=== PATIENT | female | born 1940 | race Caucasian/White ===

== ENCOUNTER 2025-01-23 13:13 | Outpatient (AMB) | payer MEDICARE, SELFPAY ==
--- NOTE | 2025-01-23 13:24 | MHC.PC.OV ---
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 Automatic Required: No Accompanied by: Self / Same As Patient Allergies No Known Allergies Allergy (Verified 01/23/25 13:43) Medication List - Last Reconciled 01/23/25 by Bonnie Calle PA-C amlodipine 5 mg PO DAILY latanoprost 0.005% 1 drp ophthalmic (eye) BEDTIME Tobacco use date assessed: 01/23/25 Fall risk assessment: No Falls in past year Last assessed Fall Risk: 01/23/25 Dental Screening Dental Screen Date: 01/23/25 Did you have a dental visit in the last 12 months?: No Did you have a dental problem in the last 6 months where you did not have access to dental care?: No HPI establish care HPI Details The patient is an 84-year-old female presenting with a new patient appointment to establish primary care and manage her existing health conditions. The patient has a history of cataracts, which have been affecting her vision. She has not scheduled surgery yet but plans to do so after completing her blood work and preoperative evaluation. The patient also has a history of hypertension, for which she was prescribed amlodipine by urgent care. She reports that her blood pressure readings at home have been satisfactory, with occasional low readings that concern her. Her blood pressure during the visit was recorded at 138/70 mmHg. The patient is very active, engaging in various activities to maintain her health. She lives alone and does not drive frequently. She has a supportive social network, including a sister and a girlfriend who assists her with healthcare decisions. Social History - Housing: Lives alone - Activity Level: Very active, engages in various activities - Social Support: Has a sister and a girlfriend who assist with healthcare decisions [facility] Medical History Cataracts, bilateral Hypertension Encounter for brief counseling about health care proxy document (~01/23/25) Full code status (~01/23/25) Establishing care with new doctor, encounter for Family History Father No problems noted. Mother No problems noted. Sister MS (multiple sclerosis) Diabetes Social History Housing: House Alcohol intake: current Alcohol intake frequency: holidays/special occasions only Alcohol type: wine Patient Tobacco Use Status: Never used Tobacco service: No Current occupational status: retired Cognitive needs: No Hearing needs: No Vision needs: Yes (rx glasses) Questionnaire PHQ-9 Over the last 2 weeks, how often have you been bothered by any of the following problems? 1. Little interest or pleasure in doing things: not at all 2. Feeling down, depressed, or hopeless: not at all 3. Trouble falling or staying asleep, or sleeping too much: not at all 4. Feeling tired or having little energy: not at all 5. Poor appetite or overeating: not at all 6. Feeling bad about yourself - or that you are a failure or have let yourself or your family down: not at all 7. Trouble concentrating on things, such as reading the newspaper or watching television: not at all 8. Moving or speaking so slowly that other people could have noticed. Or the opposite - being so fidgety or restless that you have been moving around a lot more than usual: not at all 9. Thoughts that you would be better off or of hurting yourself in some way: not at all Total score: 0 Depression Screening Interpretation: Negative Depression Screening Done: Yes 88574 - PHQ-9 Billing: Yes Source: Developed by Drs. Omar Zimmerman, Kellee Munoz, Meño Aviles and colleagues, with an educational jaison from [employer]. Thrive Questionnaire Date Thrive assessed: 01/23/25 I am a: Patient What is your living situation today?: I have a steady place to live Within the past 12 months, did the food you bought not last and you didn't have the money to get more?: Never true Within the past 12 months, did you worry whether your food would run out before you got money to buy more?: Never true Do you have trouble paying for medicines?: No Do you have trouble getting transportation to medical appointments?: No Do you have trouble paying your heating and electricity bill?: No Do you have trouble taking care of your child, family member or friend?: No Do you have trouble with day-to-day activities such as bathing, preparing meals, shopping, managing finances, etc.?: No Are you currently unemployed and looking for a job?: No Are you interested in more education?: No Please select the resources that you would like help with: None THRIVE Score: 0 AUDIT C Alcohol Use Questionnaire (AUDIT-C) 1. How often do you have a drink containing alcohol?: Monthly or less 2. How many drinks containing alcohol do you have on a typical day when you are drinking?: 1 or 2 3. How often do you have six or more drinks on one occasion?: Never Total Score: 1 Score Reviewed/Action Taken: No RAMY-7 AMB Questionnaire RAMY-7 Date RAMY - 7 assessed: 01/23/25 Feeling nervous, anxious, or on edge: 0 = Not at all Not being able to stop or control worryin = Not at all Worrying too much about different things: 0 = Not at all Trouble relaxin = Not at all Being so restless that it is hard to sit still: 0 = Not at all Becoming easily annoyed or irritable: 0 = Not at all Feeling afraid as if something awful might happen: 0 = Not at all Total RAMY-7 score (0-4 normal; 5-9 mild; 10-14 moderate; 15-21 severe): 0 Source: Developed by Drs. Omar Zimmerman, Kellee Munoz, Meño Aviles and colleagues, with an educational jaison from [employer]. RAMY-7 Assessment Billing RAMY-7 Assessment Tool: RAMY-7 Assessment 58887 Review of Systems Const Details: - Cardiovascular: Denies chest pain, dyspnea, dizziness, or syncope - Gastrointestinal: Denies black or bloody stools - General: Denies unintentional weight loss or gain Physical exam (Primary Care) Vital Signs: Last Vital Signs Temp 97.8 F 01/23/25 13:30 Pulse 98 01/23/25 13:30 Resp 14 01/23/25 13:30 BP 148/82 H 01/23/25 13:30 Pulse Ox 98 01/23/25 13:30 Oxygen Delivery Method Room Air 01/23/25 13:30 Care Plan Goal for BP management: <140/90 at Goal although patient having swelling to lower extremities from the amlodipine 5 mg therefore will put her on lisinopril 10 mg and have patient come back in 1 month for blood pressure check BMI result Body Mass Index 22.1 Normal BMI Tobacco/Smoking Status: Tobacco use Status Tobacco use date assessed 01/23/25 01/23/25 13:29 Patient Tobacco Use Status Never used Tobacco 01/23/25 13:39 PHQ-9: PHQ-9 Score PHQ-9: Total score 0 01/23/25 13:29 Depression Screening Interpretation: Negative Thrive Assessment: Date of Thrive Assessment Date Thrive assessed 01/23/25 01/23/25 13:29 Advance Care Planning discussion: Completed/Scanned Date of discussion: 01/23/25 Forms completed: Health Care Proxy and MOLST Time spent: 16-45 minutes Actual minutes spent: 25 Did not discuss due to Cultural/Spiritual beliefs: No Const Other: Appearance: Alert. Oriented X3. No acute distress. Head: Normal external exam. Normocephalic. Atraumatic. Eyes: Pupils are equal, round, and reactive to light. Extraocular movements intact. Conjunctiva and sclera normal. Eyelids normal. Presence of cataracts noted. Ears: External auditory canal normal. Tympanic membranes normal. Throat: Pharynx normal. Uvula midline. Moist mucous membranes. Neck: Normal inspection. Neck supple. Full range of motion. No adenopathy. Thyroid Normal. No meningeal signs. No neck mass noted. Cardiovascular: Normal heart rate and rhythm. Heart sound normal. No murmurs noted. Pulses normal throughout. Blood pressure recorded at 138/70. Respiratory: No respiratory distress. Painless inspiration. Breath sounds normal. No wheezes/rales/rhonchi noted. Chest nontender. No accessory muscle usage noted or decreased air movement noted. Abdomen: Soft and nontender. Bowel sounds normal in all 4 quadrants. No distention noted. No organomegaly noted. No visible injury noted. Back: No costovertebral angle tenderness. Full range of motion noted. Skin: Skin warm and dry. Normal skin color. Normal skin turgor. No rashes/lesions/lacerations noted. Extremities: No lower extremity edema. Extremities exhibit normal range of motion. Extremities nontender. Neuro: Oriented X 3. No motor deficit. No sensory deficit. Reflexes normal. Coding Level of Care Code New Pt Level 4 (04835) Complex EM visit Add On G2211 Diagnoses Establishing care with new doctor, encounter for Z76.89 Full code status Z78.9 Encounter for brief counseling about health care proxy document Z71.89 Hypertension I10 Cataracts, bilateral H26.9 Additional Codes PHQ-9 - 90963 - PHQ-9 Billing: Yes ([id number]) RAMY-7 Assessment Billing - RAMY-7 Assessment Tool: RAMY-7 Assessment 39449 ([id number]) Vital Signs *Quality* - Advance Care Planning discussion: Completed/Scanned ([id number]) Vital Signs *Quality* - Time spent: 16-45 minutes ([id number]) Time Spent (min) 40 Assessment & Plan Assessment & Plan (1) Establishing care with new doctor, encounter for: Code(s): Z76.89 - Persons encountering health services in other specified circumstances Category: Medical (2) Full code status: Onset Date: ~01/23/25 Code(s): Z78.9 - Other specified health status Category: Medical Plan: Patient filled out healthcare proxy form and MOLST form for advanced care planning today. Patient is a full code. (3) Encounter for brief counseling about health care proxy document: Onset Date: ~01/23/25 Comment: Sofia Krishna Code(s): Z71.89 - Other specified counseling Category: Medical Plan: Patient filled out healthcare proxy form and MOLST form for advanced care planning today. Patient is a full code. (4) Hypertension: Code(s): I10 - Essential (primary) hypertension Category: Medical Plan: The patient is currently on amlodipine for hypertension, with satisfactory home blood pressure readings. A switch to lisinopril was discussed due to potential side effects of amlodipine, such as leg swelling. The patient was advised to monitor for any side effects, such as cough or angioedema, and to report them immediately. (5) Cataracts, bilateral: Code(s): H26.9 - Unspecified cataract Category: Medical Plan: The patient has cataracts affecting her vision and plans to schedule surgery after completing blood work and preoperative evaluation. Plan Plan Patient was informed and verbally consented to the use of an ambient scribe for clinic note documentation during this visit. 1. Cataracts The patient has cataracts affecting her vision and plans to schedule surgery after completing blood work and preoperative evaluation. 2. Essential Hypertension The patient is currently on amlodipine for hypertension, with satisfactory home blood pressure readings. A switch to lisinopril was discussed due to potential side effects of amlodipine, such as leg swelling. The patient was advised to monitor for any side effects, such as cough or angioedema, and to report them immediately. During the visit, we discussed the patient's cataracts and the plan to schedule surgery after completing necessary blood work and preoperative evaluation. We also reviewed her hypertension management, including the potential switch from amlodipine to lisinopril due to side effects. The patient was informed about the side effects of lisinopril, such as cough and angioedema, and instructed to report any adverse reactions. Orders: Orders Hemoglobin A1c Today Z00.00 - Encounter for general adult medical examination without abnormal findings Comprehensive [place]. Panel Fast Today Z00.00 - Encounter for general adult medical examination without abnormal findings Lipid Panel Today Z00.00 - Encounter for general adult medical examination without abnormal findings Vitamin B12 and Folate Today Z00.00 - Encounter for general adult medical examination without abnormal findings Vitamin D 25-OH Total Today Z00.00 - Encounter for general adult medical examination without abnormal findings TSH reflex Free T4 Today Z00.00 - Encounter for general adult medical examination without abnormal findings C Reactive Protein Today Z00.00 - Encounter for general adult medical examination without abnormal findings Complete Blood Count Auto Diff Today Z00.00 - Encounter for general adult medical examination without abnormal findings Liver Panel Today Z00.00 - Encounter for general adult medical examination without abnormal findings Magnesium Today Z00.00 - Encounter for general adult medical examination without abnormal findings Medications: New lisinopril 10 mg PO DAILY 30 tabs 0RF Patient Instructions: - Schedule blood work and preoperative evaluation for cataract surgery. - Monitor blood pressure at home and report any significant changes. - Be aware of potential side effects of lisinopril, such as cough or swelling, and report them immediately.
[2025-01-23 13:30] VITALS: BP 138/72; PULSE 98; RESP 14; TEMP 36.6; O2SAT 98; BMI 22.1
== END 2025-01-23 14:08 | disposition home or self-care (01) ==
LOC: HO.HMCSH 13:13
PROVIDERS: PCP Internal Medicine; Visit Provider Physician Assistant Medical
DX: Z76.89 Persons encountering health services in other specified circumstances (principal); Z78.9 Other specified health status; Z71.89 Other specified counseling; I10 Essential (primary) hypertension; H26.9 Unspecified cataract; Z00.00 Encounter for general adult medical examination without abnormal findings

== ENCOUNTER → 2025-01-23 13:13 | Outpatient (BNVA) | payer MEDICARE, SELFPAY | PROVIDERS: PCP Internal Medicine; Visit Provider Physician Assistant Medical | DX: Z76.89 Persons encountering health services in other specified circumstances (principal); Z78.9 Other specified health status; Z71.89 Other specified counseling; I10 Essential (primary) hypertension; H26.9 Unspecified cataract | CPT/HCPCS: 96127; 99202; 99497 ==

== ENCOUNTER 2025-02-01 08:58 | Outpatient (REF) | payer MEDICARE, SELFPAY ==
[2025-02-01 10:22] LABS: MANUAL DIFF FLAG NO
[2025-02-01 10:45] LABS: Hematocrit 35.5 % (37.0-47.0); Hemoglobin 12.0 g/dl (12.0-16.0); Imm Gran Abs Auto 0.01 X10*3/uL (0.00-0.03); Imm Gran Pct Auto 0.3 % (0.0-0.4); Lymphocytes Absolute Auto 0.9 X10*3/uL (1.2-4.9); Mean Corpuscular HGB Conc 33.8 g/dl (31.0-35.0); Mean Corpuscular Hemoglobin 29.7 pg (27.0-33.0); Mean Corpuscular Volume 87.9 fL (80.0-98.0); NRBC Abs Auto 0.000 X10*3/uL (0.0-0.012); NRBC Pct Auto 0.0 /100WBC (0.0-0.2); Platelet Count 157 X10*3/uL (160-400); Red Blood Count 4.04 X10*6/uL (4.20-5.50); White Blood Count 3.4 X10*3/uL (4.8-10.8)
[2025-02-01 10:53] LABS: Hemoglobin A1C 109.7401 umol/L; Total Hemoglobin (HGBA1C) 3239.4056 umol/L
[2025-02-01 11:09] LABS: Alanine Aminotransferase 21 U/L (0-31); Albumin Level 4.3 g/dL (3.5-5.0); Alkaline Phosphatase 73 U/L (39-117); Anion Gap 13 (12-20); Aspartate Amino Transferase 28 U/L (5-31); Blood Urea Nitrogen 18 mg/dL (9-16); Calcium 9.9 mg/dL (8.4-10.2); Carbon Dioxide 27 mmol/L (22-29); Chloride 107 mmol/L (96-108); Cholesterol 225 mg/dL (<200); Estimated Glomerular Filt Rate > 60; HDL Cholesterol 67 mg/dL (>40); Magnesium 2.1 mg/dL (1.6-2.6); Potassium 4.9 mmol/L (3.3-5.1); Sodium 142 mmol/L (135-145); Total Protein 7.1 g/dL (6.5-8.0); Triglycerides 56 mg/dL (<150)
[2025-02-01 11:51] LABS: Folate 14.1 ng/mL (> or = 4.0); Vitamin B12 270 pg/mL (200-900)
== END 2025-02-01 08:59 | disposition home or self-care (01) ==
LOC: HO.HMGCLDS 08:58
PROVIDERS: PCP Physician Assistant Medical; Visit Provider Physician Assistant Medical
DX: Z00.00 Encounter for general adult medical examination without abnormal findings (principal); Z13.1 Encounter for screening for diabetes mellitus
CPT/HCPCS: 36415; 80053; 80061; 80076; 82248; 82306; 82607; 82746; 83036; 83735; 84443; 85025; 86140

== ENCOUNTER 2025-02-06 10:53 | Outpatient (AMB) | payer MEDICARE, SELFPAY ==
[2025-02-06 10:54] VITALS: BP 126/64; PULSE 85; RESP 16; TEMP 37; O2SAT 98; BMI 22.0
--- NOTE | 2025-02-06 10:54 | A.OFFPC_ITS ---
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 Required: No Accompanied by: Self / Same As Patient Allergies No Known Allergies Allergy (Verified 02/06/25 11:26) Medication List - Last Reconciled 02/06/25 by Bonnie Calle PA-C amlodipine 5 mg PO DAILY latanoprost 0.005% 1 drp ophthalmic (eye) BEDTIME Tobacco use date assessed: 01/23/25 Fall risk assessment: No Falls in past year Last assessed Fall Risk: 01/23/25 Dental Screening Dental Screen Date: 01/23/25 Did you have a dental visit in the last 12 months?: No Did you have a dental problem in the last 6 months where you did not have access to dental care?: No Was dental information given to patient?: Patient has dentist HPI 2 week follow up HPI Details The patient is an 84-year-old female presenting with a follow-up for hypertension management. She has been taking amlodipine 5 mg for hypertension after discontinuing lisinopril due to concerns about side effects, specifically leg swelling. The patient reports feeling well on amlodipine, with no current side effects, and her blood pressure was normal during the visit. The patient also has a history of hyperlipidemia, with recent lab results showing a total cholesterol level of 225 mg/dL and LDL cholesterol of 145 mg/dL. She acknowledges not adhering to a healthy diet, consuming foods like tuna fish, which may contribute to her elevated cholesterol levels. The patient is not currently on medication for hyperlipidemia and prefers lifestyle modifications. Recent blood work indicated leukopenia with a white blood cell count of 3.4 thousand and thrombocytopenia with a low platelet count. The patient is otherwise asymptomatic and reports feeling strong. There is no history of diabetes, with a recent glucose test showing a level of 5.3, indicating no risk for diabetes. Social History - Housing: Lives in a house built by her father and brother, taking care of cats left by her niece. - Family Status: Recently experienced th e loss of a niece to pancreatic cancer and a nephew to suicide. 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 - Nutritional Intake: Consumes a diet in cluding tuna fish, acknowledges not eating healthily. [facility] Medical History (Updated 02/06/25 @ 14:48 by Bonnie Calle PA-C) Thrombocytopenia Leukopenia Hyperlipidemia Cataracts, bilateral Hypertension Encounter for brief counseling about health care proxy document (~01/23/25) Full code status (~01/23/25) Establishing care with new doctor, encounter for Family History Father No problems noted. Mother No problems noted. Sister MS (multiple sclerosis) Diabetes Social History Housing: House Alcohol intake: current Alcohol intake frequency: holidays/special occasions only Alcohol type: wine Patient Tobacco Use Status: Never used Tobacco service: No Current occupational status: retired Cognitive needs: No Hearing needs: No Vision needs: Yes (rx glasses) Questionnaire PHQ-9 Over the last 2 weeks, how often have you been bothered by any of the following problems? 1. Little interest or pleasure in doing things: not at all 2. Feeling down, depressed, or hopeless: not at all 3. Trouble falling or staying asleep, or sleeping too much: not at all 4. Feeling tired or having little energy: not at all 5. Poor appetite or overeating: not at all 6. Feeling bad about yourself - or that you are a failure or have let yourself or your family down: not at all 7. Trouble concentrating on things, such as reading the newspaper or watching television: not at all 8. Moving or speaking so slowly that other people could have noticed. Or the opposite - being so fidgety or restless that you have been moving around a lot more than usual: not at all 9. Thoughts that you would be better off or of hurting yourself in some way: not at all Total score: 0 Depression Screening Interpretation: Negative Depression Screening Done: Yes 90651 - PHQ-9 Billing: Yes Source: Developed by Drs. Omar Zimmerman, Kellee Munoz, Meño Aviles and colleagues, with an educational jaison from [employer]. Thrive Questionnaire Date Thrive assessed: 01/23/25 I am a: Patient What is your living situation today?: I have a steady place to live Within the past 12 months, did the food you bought not last and you didn't have the money to get more?: Never true Within the past 12 months, did you worry whether your food would run out before you got money to buy more?: Never true Do you have trouble paying for medicines?: No Do you have trouble getting transportation to medical appointments?: No Do you have trouble paying your heating and electricity bill?: No Do you have trouble taking care of your child, family member or friend?: No Do you have trouble with day-to-day activities such as bathing, preparing meals, shopping, managing finances, etc.?: No Are you currently unemployed and looking for a job?: No Are you interested in more education?: No Please select the resources that you would like help with: None THRIVE Score: 0 AUDIT C Alcohol Use Questionnaire (AUDIT-C) 1. How often do you have a drink containing alcohol?: Monthly or less 2. How many drinks containing alcohol do you have on a typical day when you are drinking?: 1 or 2 3. How often do you have six or more drinks on one occasion?: Never Total Score: 1 Score Reviewed/Action Taken: No RAMY-7 AMB Questionnaire RAMY-7 Date RAMY - 7 assessed: 01/23/25 Feeling nervous, anxious, or on edge: 0 = Not at all Not being able to stop or control worryin = Not at all Worrying too much about different things: 0 = Not at all Trouble relaxin = Not at all Being so restless that it is hard to sit still: 0 = Not at all Becoming easily annoyed or irritable: 0 = Not at all Feeling afraid as if something awful might happen: 0 = Not at all Total RAMY-7 score (0-4 normal; 5-9 mild; 10-14 moderate; 15-21 severe): 0 Source: Developed by Drs. Omar Zimmerman, Kellee Munoz, Meño Aviles and colleagues, with an educational jaison from [employer]. RAMY-7 Assessment Billing RAMY-7 Assessment Tool: RAMY-7 Assessment 99029 Review of Systems Const Details: - Cardiovascular: Reports normal blood pressure at the time of visit. Denies chest pain or palpitations. - Hematologic: Reports feeling strong despite low white blood cell and platelet counts. - Endocrine: Denies symptoms of diabetes, with normal glucose levels reported. Physical exam (Primary Care) Vital Signs: Last Vital Signs Temp 98.6 F 02/06/25 10:54 Pulse 85 02/06/25 10:54 Resp 16 02/06/25 10:54 BP 126/64 02/06/25 10:54 Pulse Ox 98 02/06/25 10:54 Oxygen Delivery Method Room Air 02/06/25 10:54 Care Plan Goal for BP management: <140/90 at Goal BMI result Body Mass Index 22.0 Tobacco/Smoking Status: Tobacco use Status Tobacco use date assessed 01/23/25 02/06/25 11:00 Patient Tobacco Use Status Never used Tobacco 02/06/25 11:00 PHQ-9: PHQ-9 Score PHQ-9: Total score 0 02/06/25 11:28 Depression Screening Interpretation: Negative Thrive Assessment: Date of Thrive Assessment Date Thrive assessed 01/23/25 02/06/25 11:00 Const Other: Appearance: Alert. Oriented X3. No acute distress. Head: Normal external exam. Normocephalic. Atraumatic. Eyes: Pupils are equal, round, and reactive to light. Extraocular movements intact. Conjunctiva and sclera normal. Eyelids normal. Throat: Pharynx normal. Uvula midline. Moist mucous membranes. Neck: Normal inspection. Neck supple. Full range of motion. Cardiovascular: Normal heart rate and rhythm. Respiratory: No respiratory distress. Painless inspiration. Back: Full range of motion noted. Skin: Skin warm and dry. Normal skin color. Normal skin turgor. No rashes/le sions/lacerations noted. Extremities: No lower extremity edema. Extremities exhibit normal range of motion. Neuro: Oriented X 3. No motor deficit. No sensory deficit. Reflexes normal. Results Reviewed Results Reviewed: - Labs: White blood cell count 3.4 thousand, platelet count low, total cholesterol 225 mg/dL, LDL cholesterol 145 mg/dL, glucose 5.3, triglycerides 56 mg/dL. Coding Level of Care Code Est Pt Level 4 (86585) Complex EM visit Add On G2211 Diagnoses Hypertension I10 Hyperlipidemia E78.5 Leukopenia D72.819 Thrombocytopenia D69.6 Additional Codes RAMY-7 Assessment Billing - RAMY-7 Assessment Tool: RAMY-7 Assessment 63694 ([id number]) PHQ-9 - 96606 - PHQ-9 Billing: Yes ([id number]) Assessment & Plan Assessment & Plan (1) Hypertension: Code(s): I10 - Essential (primary) hypertension Category: Medical Plan: The patient is currently managing hypertension with amlodipine 5 mg, having discontinued lisinopril due to side effects. Blood pressure was normal during the visit, and the patient reports no adverse effects from the current medication. A follow-up appointment is scheduled in three months to monitor blood pressure and medication efficacy. (2) Hyperlipidemia: Code(s): E78.5 - Hyperlipidemia, unspecified Category: Medical Plan: The patient has elevated cholesterol levels, with a total cholesterol of 225 mg/dL and LDL of 145 mg/dL. She prefers lifestyle modifications over medication and will receive dietary guidance to help manage cholesterol levels. A pamphlet with natural options for cholesterol management will be provided. (3) Leukopenia: Code(s): D72.819 - Decreased white blood cell count, unspecified Category: Medical Plan: The patient has a low white blood cell count of 3.4 thousand, which may be chronic. She is asymptomatic and reports feeling strong, with no immediate concerns raised during the visit. The condition will be re-evaluated in six months to monitor any changes. (4) Thrombocytopenia: Code(s): D69.6 - Thrombocytopenia, unspecified Category: Medical Plan: The patient has a low platelet count, but is otherwise asymptomatic and reports feeling strong. The condition will be monitored, with a follow-up planned in six months to assess any changes. Plan Plan Patient was informed and verbally consented to the use of an ambient scribe for clinic note documentation during this visit. 1. Hypertension The patient is currently managing hypertension with amlodipine 5 mg, having discontinued lisinopril due to side effects. Blood pressure was normal during the visit, and the patient reports no adverse effects from the current medication. A follow-up appointment is scheduled in three months to monitor blo od pressure and medication efficacy. 2. Hyperlipidemia The patient has elevated cholesterol levels, with a total cholesterol of 225 mg/dL and LDL of 145 mg/dL. She prefers lifestyle modifications over medication and will receive dietary guidance to help manage cholesterol levels. A pamphlet with natural options for cholesterol management will be provided. 3. Leukopenia The patient has a low white blood cell count of 3.4 thousand, which may be chronic. She is asymptomatic and reports feeling strong, with no immediate concerns raised during the visit. The condition will be re-evaluated in six months to monitor any changes. 4. Thrombocytopenia The patient has a low platelet count, but is otherwise asymptomatic and reports feeling strong. The condition will be monitored, with a follow-up planned in six months to assess any changes. During the visit, we discussed the management of hypertension with amlodipine, noting the patient's positive response and normal blood pressure readings. We also reviewed her cholesterol levels and the preference for lifestyle modifications over medication, providing dietary guidance and a pamphlet with natural options. The low white blood cell and platelet counts were addressed, with reassurance provided regarding the lack of symptoms and a plan to re- evaluate in six months. Medications: Discontinued lisinopril Discontinued Reason: Doctor's Order 10 mg PO DAILY 30 tabs 0RF Patient Instructions: - Continue taking amlodipine 5 mg daily for hypertension management. - Follow dietary guidance to manage cholesterol levels and review the provided pamphlet for natural options. - Schedule a follow-up appointment in three months to monitor blood pressure and medication efficacy. - Plan for a re-evaluation of blood counts in six months.
== END 2025-02-06 11:27 | disposition home or self-care (01) ==
LOC: HO.HMCSH 10:53
PROVIDERS: PCP Physician Assistant Medical; Visit Provider Physician Assistant Medical
DX: I10 Essential (primary) hypertension (principal); E78.5 Hyperlipidemia, unspecified; D72.819 Decreased white blood cell count, unspecified; D69.6 Thrombocytopenia, unspecified

== ENCOUNTER → 2025-02-06 10:53 | Outpatient (BNVA) | payer MEDICARE, SELFPAY | PROVIDERS: PCP Physician Assistant Medical; Visit Provider Physician Assistant Medical | DX: I10 Essential (primary) hypertension (principal); E78.5 Hyperlipidemia, unspecified; D72.819 Decreased white blood cell count, unspecified; D69.6 Thrombocytopenia, unspecified | CPT/HCPCS: 96127; 99212 ==

== ENCOUNTER 2025-05-09 13:00 | Outpatient (AMB) | payer MEDICARE, SELFPAY ==
[2025-05-09 13:02] VITALS: BP 147/74; PULSE 71; TEMP 36.4; O2SAT 98; BMI 22.3
--- NOTE | 2025-05-09 13:02 | A.OFFPC_ITS ---
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 Accompanied by: Self / Same As Patient Allergies No Known Allergies Allergy (Verified 05/09/25 13:22) Medication List - Last Reconciled 05/09/25 by Bonnie Calle PA-C amlodipine 5 mg PO DAILY latanoprost 0.005% 1 drp ophthalmic (eye) BEDTIME Tobacco use date assessed: 05/09/25 Fall risk assessment: No Falls in past year Last assessed Fall Risk: 05/09/25 Dental Screening Dental Screen Date: 05/09/25 Did you have a dental visit in the last 12 months?: No Did you have a dental problem in the last 6 months where you did not have access to dental care?: No Was dental information given to patient?: Patient has dentist HPI 4 month f/u HPI Details The patient is an 85-year-old female presenting with swelling in her feet and hypertension management. The patient reports swelling in her feet, with the right foot appearing more swollen than the left. She denies any recent falls or injuries that could have contributed to the swelling. The patient is currently taking amlodipine, which may be contributing to the swelling as a side effect. The patient has a history of hypertension, with recent blood pressure readings at home typically around 120/70 mmHg. During the visit, her blood pressure was recorded at 139/77 mmHg, which is higher than her usual readings. Additionally, the patient has a callus on her right foot, which is causing discomfort. Social History - Exercise: The patient engages in yard work and other physical activities. - Family Status: The patient is involved in caring for her niece's cat, indicating a supportive family role. [facility] Medical History (Updated 05/09/25 @ 13:40 by Bonnie Calle PA-C) Peripheral edema Ballard of foot Leg swelling Thrombocytopenia Leukopenia Hyperlipidemia Cataracts, bilateral Hypertension Encounter for brief counseling about health care proxy document (~01/23/25) Full code status (~01/23/25) Establishing care with new doctor, encounter for Family History Father No problems noted. Mother No problems noted. Sister MS (multiple sclerosis) Diabetes Social History Housing: House Alcohol intake: current Alcohol intake frequency: holidays/special occasions only Alcohol type: wine Patient Tobacco Use Status: Never used Tobacco service: No Current occupational status: retired Cognitive needs: No Hearing needs: No Vision needs: Yes (rx glasses) Questionnaire PHQ-9 Over the last 2 weeks, how often have you been bothered by any of the following problems? 1. Little interest or pleasure in doing things: not at all 2. Feeling down, depressed, or hopeless: not at all 3. Trouble falling or staying asleep, or sleeping too much: not at all 4. Feeling tired or having little energy: not at all 5. Poor appetite or overeating: not at all 6. Feeling bad about yourself - or that you are a failure or have let yourself or your family down: not at all 7. Trouble concentrating on things, such as reading the newspaper or watching television: not at all 8. Moving or speaking so slowly that other people could have noticed. Or the opposite - being so fidgety or restless that you have been moving around a lot more than usual: not at all 9. Thoughts that you would be better off or of hurting yourself in some way: not at all Total score: 0 Depression Screening Interpretation: Negative Depression Screening Done: Yes 57742 - PHQ-9 Billing: Yes Source: Developed by Drs. Omar Zimmerman, Kellee Munoz, Meño Aviles and colleagues, with an educational jaison from [employer] Thrive Questionnaire Date Thrive assessed: 05/09/25 I am a: Patient What is your living situation today?: I have a steady place to live Within the past 12 months, did the food you bought not last and you didn't have the money to get more?: Never true Within the past 12 months, did you worry whether your food would run out before you got money to buy more?: Never true Do you have trouble paying for medicines?: No Do you have trouble getting transportation to medical appointments?: No Do you have trouble paying your heating and electricity bill?: No Do you have trouble taking care of your child, family member or friend?: No Do you have trouble with day-to-day activities such as bathing, preparing meals, shopping, managing finances, etc.?: No Are you currently unemployed and looking for a job?: No Are you interested in more education?: No Please select the resources that you would like help with: None THRIVE Score: 0 AUDIT C Alcohol Use Questionnaire (AUDIT-C) 1. How often do you have a drink containing alcohol?: Monthly or less 2. How many drinks containing alcohol do you have on a typical day when you are drinking?: 1 or 2 3. How often do you have six or more drinks on one occasion?: Never Total Score: 1 Score Reviewed/Action Taken: No RAMY-7 AMB Questionnaire RAMY-7 Date RAMY - 7 assessed: 05/09/25 Feeling nervous, anxious, or on edge: 0 = Not at all Not being able to stop or control worryin = Not at all Worrying too much about different things: 0 = Not at all Trouble relaxin = Not at all Being so restless that it is hard to sit still: 0 = Not at all Becoming easily annoyed or irritable: 0 = Not at all Feeling afraid as if something awful might happen: 0 = Not at all Total RAMY-7 score (0-4 normal; 5-9 mild; 10-14 moderate; 15-21 severe): 0 Source: Developed by Drs. Omar Zimmerman, Kellee Munoz, Meño Aviles and colleagues, with an educational jaison from [employer] RAMY-7 Assessment Billing RAMY-7 Assessment Tool: RAMY-7 Assessment 32994 Review of Systems Const Details: - Cardiovascular: Denies chest pain, orthopnea, or syncope. - Respiratory: Denies dyspnea, cough, or wheezing. - Musculoskeletal: Reports swelling in the feet, more pronounced in the right foot. - Neurological: Denies headaches or dizziness. All systems reviewed & are unremarkable except as noted in HPI and below Physical exam (Primary Care) Vital Signs: Last Vital Signs Temp 97.5 F 05/09/25 13:02 Pulse 71 05/09/25 13:02 BP 147/74 H 05/09/25 13:02 Pulse Ox 98 05/09/25 13:02 Oxygen Delivery Method Room Air 05/09/25 13:02 Care Plan Goal for BP management: <140/90 at Goal BMI result Body Mass Index 22.3 Normal BMI Tobacco/Smoking Status: Tobacco use Status Tobacco use date assessed 05/09/25 05/09/25 13:10 Patient Tobacco Use Status Never used Tobacco 05/09/25 13:10 PHQ-9: PHQ-9 Score PHQ-9: Total score 0 05/09/25 13:10 Depression Screening Interpretation: Negative Thrive Assessment: Date of Thrive Assessment Date Thrive assessed 05/09/25 05/09/25 13:10 Const Other: Appearance: Alert. Oriented X3. No acute distress. Head: Normal external exam. Normocephalic. Atraumatic. Eyes: Pupils are equal, round, and reactive to light. Extraocular movements intact. Conjunctiva and sclera normal. Eyelids normal. Throat: Pharynx normal. Uvula midline. Moist mucous membranes. Neck: Normal inspection. Neck supple. Full range of motion. Cardiovascular: Normal heart rate and rhythm. Heart sound normal. No murmurs noted. Pulses normal throughout. Respiratory: No respiratory distress. Painless inspiration. Breath sounds normal. No wheezes/rales/rhonchi noted. No accessory muscle usage noted or decreased air movement noted. Back: Full range of motion noted. Skin: Skin warm and dry. Normal skin color. Normal skin turgor. No rashes/lesions/lacerations noted. Extremities: Right leg exhibits more swelling than the left. Mild swelling to the left lower extremity although there is no pitting edema noted. There is no calf tenderness noted. Normal capillary refill. Normal pulses. No cyanosis is noted. No signs of infection is noted. She does have a callus to the right plantar aspect of the foot there is no surrounding erythema, streaking, fluctuance or signs of active infection at this time. Otherwise all other extremities exhibit normal range of motion nontender. Neuro: Oriented X 3. No motor deficit. No sensory deficit. Reflexes normal. Coding Level of Care Code Est Pt Level 4 (39921) Complex EM visit Add On G2211 Diagnoses Ballard of foot L84 Peripheral edema R60.0 Hypertension I10 Additional Codes RAMY-7 Assessment Billing - RAMY-7 Assessment Tool: RAMY-7 Assessment 93396 ([id number]) PHQ-9 - 37711 - PHQ-9 Billing: Yes ([id number]) Assessment & Plan Assessment & Plan (1) Ballard of foot: Code(s): L84 - Corns and callosities Category: Medical Plan: The patient has a callus/corn on her right foot, causing discomfort. A referral to podiatry was made for further evaluation and management. (2) Peripheral edema: Code(s): R60.0 - Localized edema Category: Medical Plan: The patient is experiencing peripheral edema, likely due to amlodipine use. A plan to switch medications was discussed, but the current medication is effective for blood pressure control. Blood work, a chest x-ray, and an ultrasound of the legs were ordered to rule out other causes. The patient was prescribed Lasix 20 mg daily for three days to help reduce fluid retention. Then a repeat basic metabolic panel on Tuesday as scheduled as well to ensure that the patient does not develop any hyponatremia, STERLING or hypokalemia while on the Lasix for 3 days (3) Hypertension: Code(s): I10 - Essential (primary) hypertension Category: Medical Plan: The patient's hypertension is generally well-controlled with amlodipine, with home readings around 120/70 mmHg. During the visit, her blood pressure was slightly elevated at 139/77 mmHg, possibly due to stress or the clinical setting. Continued monitoring and adherence to current medication were advised. Plan Plan Patient was informed and verbally consented to the use of an ambient scribe for clinic note documentation during this visit. 1. Callus/corn On Right Foot The patient has a callus on her right foot, causing discomfort. A referral to podiatry was made for further evaluation and management. 2. Peripheral Edema The patient is experiencing peripheral edema, likely due to amlodipine use. A plan to switch medications was discussed, but the current medication is effective for blood pressure control. Blood work, a chest x-ray, and an ultrasound of the legs were ordered to rule out other causes. The patient was prescribed Lasix 20 mg daily for three days to help reduce fluid retention. 3. Hypertension The patient's hypertension is generally well-controlled with amlodipine, with home readings around 120/70 mmHg. During the visit, her blood pressure was slightly elevated at 139/77 mmHg, possibly due to stress or the clinical setting. Continued monitoring and adherence to current medication were advised. During the visit, I discussed with the patient the likely cause of her eugene pheral edema, which is possibly a side effect of amlodipine. We considered switching her medication but decided to continue with amlodipine due to its effectiveness in controlling her blood pressure. I explained the need for blood work, a chest x-ray, and an ultrasound of her legs to rule out other causes of edema. I also prescribed Lasix to help reduce fluid retention and referred her to podiatry for her foot callus. Orders: Orders XR chest 2V Today M79.89 - Other specified soft tissue disorders US venous duplex LE BI Today M79.89 - Other specified soft tissue disorders Basic Metabolic Panel 3 Days Z00.00 - Encounter for general adult medical examination without abnormal findings Influenza [id number] Immunization Today Z23 - Encounter for immunization Basic Metabolic Panel Today Z00.00 - Encounter for general adult medical examination without abnormal findings Complete Blood Count no Diff Today Z00.00 - Encounter for general adult medical examination without abnormal findings C Reactive Protein Today Z00.00 - Encounter for general adult medical examination without abnormal findings Erythrocyte Sedimentation Rate Today Z00.00 - Encounter for general adult medical examination without abnormal findings NT Pro B Type Natriuretic Pept Today M79.89 - Other specified soft tissue disorders XR foot RT min 3V Today L84 - Corns and callosities Referrals Podiatry Referral L84 - Corns and callosities, M79.89 - Other specified soft tissue disorders Medications: New furosemide (Lasix) 20 mg PO DAILY 3 tabs 0RF 3 days Fluarix [id number] (PF) (flu vac ts 2024-(6mos up)-PF) 0.5 mL IM ONCE 0.5 mL 0RF NS Z23 - Encounter for immunization Patient Instructions: - Take Lasix 20 mg daily for three days to help reduce swelling. - Schedule and attend appointments for blood work, chest x-ray, and ultrasound of the legs. - Follow up with podiatry for evaluation of the foot callus. - Monitor blood pressure at home and report any significant changes.
[2025-05-09 13:38] VITALS: BP 139/77
== END 2025-05-09 13:38 | disposition home or self-care (01) ==
LOC: HO.HMCSH 13:00
PROVIDERS: PCP Physician Assistant Medical; Visit Provider Physician Assistant Medical
DX: L84 Corns and callosities (principal); R60.0 Localized edema; I10 Essential (primary) hypertension

== ENCOUNTER → 2025-05-09 13:00 | Outpatient (BNVA) | payer MEDICARE, SELFPAY | PROVIDERS: PCP Physician Assistant Medical; Visit Provider Physician Assistant Medical | DX: I10 Essential (primary) hypertension (principal); M79.89 Other specified soft tissue disorders; L84 Corns and callosities; R60.0 Localized edema | CPT/HCPCS: 96127; 99212 ==

== ENCOUNTER 2025-05-15 09:33 | Outpatient (REF) | payer MEDICARE, SELFPAY ==
--- NOTE | ~2025-05-15 | US_ITS ---
EXAMINATION: US TRIPLEX LOWER EXTREMITY, BILATERAL CLINICAL INFORMATION: Bilateral lower extremity edema. COMPARISON: None available. TECHNIQUE: Color-flow triplex imaging with spectral analysis and compression Doppler were performed on the bilateral lower extremities. FINDINGS: Respiratory variation, normal compression and augmented flow are noted throughout the bilateral lower extremities. The visualized common femoral vein, superficial femoral vein, profunda femoral vein, popliteal vein and midcalf peroneal and posterior tibial venous segments show no evidence of deep venous thrombosis bilaterally. There is no Wilde's cyst. US/US venous duplex LE BI IMPRESSION: No evidence of deep venous thrombosis involving the bilateral lower extremities. Electronically signed by: Samuel Braga MD 05/15/2025 09:58 AM EDT
== END 2025-05-15 09:34 | disposition home or self-care (01) ==
LOC: HO.HMGCX 09:33
PROVIDERS: PCP Physician Assistant Medical; Visit Provider Physician Assistant Medical
DX: R60.0 Localized edema (principal)
CPT/HCPCS: 93970

== ENCOUNTER → 2025-05-15 09:37 | Outpatient (BNV) | payer MEDICARE, SELFPAY | PROVIDERS: PCP Physician Assistant Medical; Visit Provider Radiology Diagnostic Radiology | DX: R60.0 Localized edema (principal) | CPT/HCPCS: 93970 ==

== ENCOUNTER 2025-05-21 10:16 | Outpatient (REF) | payer MEDICARE, SELFPAY ==
--- NOTE | ~2025-05-21 | XR_ITS ---
EXAMINATION: XR CHEST CLINICAL INFORMATION: M79.89 - Other specified soft tissue disorders COMPARISON: None available. TECHNIQUE: PA and lateral views. FINDINGS: Hyperinflated lungs. Pulmonary reticular pattern. Bilateral apical lung scarring. No consolidation, pleural effusion or pneumothorax. Cardiomediastinal silhouette size is normal. Multilevel spondylosis, axial skeleton. Osteopenia versus osteoporosis. XR/XR chest 2V IMPRESSION: COPD emphysematous type changes without acute airspace disease. Electronically signed by: Rashawn Aguirre MD 05/21/2025 10:38 AM EDT
--- NOTE | ~2025-05-21 | XR_ITS ---
EXAMINATION: XR FOOT, RIGHT CLINICAL INFORMATION: L84 - Corns and callosities COMPARISON: None available. TECHNIQUE: AP, lateral, and oblique views of the right foot. FINDINGS: Osteopenia versus osteoporosis. Degenerative changes in the interphalangeal joints of the toes. Small plantar calcaneal spur. No acute cortical disruption or malalignment. No lytic or blastic lesions. No subcutaneous emphysema. No metallic or radiopaque foreign body. XR/XR foot RT min 3V IMPRESSION: Degenerative changes without acute fracture or dislocation. Electronically signed by: Rashawn Aguirre MD 05/21/2025 10:39 AM EDT
[2025-05-21 13:11] LABS: Hematocrit 36.9 % (37.0-47.0); Hemoglobin 12.0 g/dl (12.0-16.0); Mean Corpuscular HGB Conc 32.5 g/dl (31.0-35.0); Mean Corpuscular Hemoglobin 29.0 pg (27.0-33.0); Mean Corpuscular Volume 89.1 fL (80.0-98.0); NRBC Abs Auto 0.000 X10*3/uL (0.0-0.012); NRBC Pct Auto 0.0 /100WBC (0.0-0.2); Platelet Count 182 X10*3/uL (160-400); Red Blood Count 4.14 X10*6/uL (4.20-5.50); White Blood Count 4.0 X10*3/uL (4.8-10.8)
[2025-05-21 13:24] LABS: Anion Gap 12 (12-20); Blood Urea Nitrogen 20 mg/dL (9-16); Calcium 9.7 mg/dL (8.4-10.2); Carbon Dioxide 24 mmol/L (22-29); Chloride 109 mmol/L (96-108); Estimated Glomerular Filt Rate > 60; Potassium 4.4 mmol/L (3.3-5.1); Sodium 141 mmol/L (135-145)
[2025-05-21 13:26] LABS: NT Pro B Type Natriuretic Pept 75.3 pg/mL (<300)
== END 2025-05-21 10:17 | disposition home or self-care (01) ==
LOC: HO.HMGCX 10:16
PROVIDERS: PCP Physician Assistant Medical; Visit Provider Physician Assistant Medical
DX: Z00.00 Encounter for general adult medical examination without abnormal findings (principal); L84 Corns and callosities; M79.89 Other specified soft tissue disorders
CPT/HCPCS: 36415; 71046; 73630; 80048; 83880; 85027; 85652; 86140

== ENCOUNTER → 2025-05-21 10:19 | Outpatient (BNV) | payer MEDICARE, SELFPAY | PROVIDERS: PCP Physician Assistant Medical; Visit Provider Radiology Diagnostic Radiology | DX: J43.9 Emphysema, unspecified (principal); M19.071 Primary osteoarthritis, right ankle and foot | CPT/HCPCS: 71046; 73630 ==

== ENCOUNTER 2025-05-27 13:01 | Outpatient (AMB) | payer MEDICARE, SELFPAY ==
--- NOTE | 2025-05-27 13:02 | MHC.PC.OV ---
Vital Signs 05/27/25 13:03 Height 5 ft 6 in Weight 137 lb BMI 22.1 BP 134/60 Blood Pressure Location Rt brachial Position Sitting Respiration 14 Pulse 77 Pulse Source Pulse Oximeter Temp 97.8 F Temp Source Temporal Artery Scan Pulse Oximetry (%) 98 Oxygen Delivery Method Room Air Intake Visit Reasons: 2 Week follow up [address] Stenographer Required: No Accompanied by: Self / Same As Patient Allergies No Known Allergies Allergy (Verified 05/27/25 13:28) Medication List - Last Reconciled 05/27/25 by Bonnie Calle PA-C amlodipine 5 mg PO DAILY bimatoprost 0.01% (Lumigan) drps ophthalmic (eye) rosuvastatin (Crestor) 10 mg PO BEDTIME 90 days Tobacco use date assessed: 05/09/25 Dental Screening Dental Screen Date: 05/09/25 HPI 2 Week follow up HPI Details The patient is an 85-year-old female presenting for a 2-week follow-up visit. The primary concern is persistent leg swelling, which had previously improved with a 3-day course of Lasix. A recent workup included an ultrasound which ruled out blood clots, and a chest x-ray that was negative for congestive heart failure. Recent blood work was also noted to be okay, and the swelling is suspected to be related to amlodipine. The patient reports sometimes forgetting to take her blood pressure medication. Recent lab results showed a total cholesterol of 225 mg/dL and an LDL cholesterol of 147 mg/dL. The patient reports a diet that includes a lot of peanut butter and cheese. Her previous hemoglobin A1c was 5.3, indicating she is not diabetic. Her eye drops for glaucoma, Lumigen, were recently changed by her floor care specialist. She has a pending appointment with a hospice fellow. Social History - Functional Status: The patient reports being very busy and active, including doing strenuous yard work. - Nutritional Intake: The patient's diet includes a lot of peanut butter and cheese. - Support System: She takes care of her niece's cats. [facility] Medical History (Updated 05/27/25 @ 13:31 by Bonnie Calle PA-C) Healthcare maintenance Mild hypercholesterolemia Peripheral edema Street of foot Leg swelling Thrombocytopenia Leukopenia Hyperlipidemia Cataracts, bilateral Hypertension Encounter for brief counseling about health care proxy document (~01/23/25) Full code status (~01/23/25) Establishing care with new doctor, encounter for Family History Father No problems noted. Mother No problems noted. Sister MS (multiple sclerosis) Diabetes Social History Housing: House Alcohol intake: current Alcohol intake frequency: holidays/special occasions only Alcohol type: wine Patient Tobacco Use Status: Never used Tobacco service: No Current occupational status: retired Cognitive needs: No Hearing needs: No Vision needs: Yes (rx glasses) Questionnaire PHQ-9 Over the last 2 weeks, how often have you been bothered by any of the following problems? 1. Little interest or pleasure in doing things: not at all 2. Feeling down, depressed, or hopeless: not at all 3. Trouble falling or staying asleep, or sleeping too much: not at all 4. Feeling tired or having little energy: not at all 5. Poor appetite or overeating: not at all 6. Feeling bad about yourself - or that you are a failure or have let yourself or your family down: not at all 7. Trouble concentrating on things, such as reading the newspaper or watching television: not at all 8. Moving or speaking so slowly that other people could have noticed. Or the opposite - being so fidgety or restless that you have been moving around a lot more than usual: not at all 9. Thoughts that you would be better off or of hurting yourself in some way: not at all Total score: 0 Depression Screening Interpretation: Negative Depression Screening Done: Yes 23621 - PHQ-9 Billing: Yes Source: Developed by Drs. Omar Zimmerman, Kellee Munoz, Meño Aviles and colleagues, with an educational jaison from [employer]. Thrive Questionnaire Date Thrive assessed: 05/09/25 I am a: Patient What is your living situation today?: I have a steady place to live Within the past 12 months, did the food you bought not last and you didn't have the money to get more?: Never true Within the past 12 months, did you worry whether your food would run out before you got money to buy more?: Never true Do you have trouble paying for medicines?: No Do you have trouble getting transportation to medical appointments?: No Do you have trouble paying your heating and electricity bill?: No Do you have trouble taking care of your child, family member or friend?: No Do you have trouble with day-to-day activities such as bathing, preparing meals, shopping, managing finances, etc.?: No Are you currently unemployed and looking for a job?: No Are you interested in more education?: No Please select the resources that you would like help with: None THRIVE Score: 0 AUDIT C Alcohol Use Questionnaire (AUDIT-C) 1. How often do you have a drink containing alcohol?: Monthly or less 2. How many drinks containing alcohol do you have on a typical day when you are drinking?: 1 or 2 3. How often do you have six or more drinks on one occasion?: Never Total Score: 1 Score Reviewed/Action Taken: No RAMY-7 AMB Questionnaire RAMY-7 Date RAMY - 7 assessed: 05/09/25 Feeling nervous, anxious, or on edge: 0 = Not at all Not being able to stop or control worryin = Not at all Worrying too much about different things: 0 = Not at all Trouble relaxin = Not at all Being so restless that it is hard to sit still: 0 = Not at all Becoming easily annoyed or irritable: 0 = Not at all Feeling afraid as if something awful might happen: 0 = Not at all Total RAMY-7 score (0-4 normal; 5-9 mild; 10-14 moderate; 15-21 severe): 0 Source: Developed by Drs. Omar Zimmerman, Kellee Munoz, Meño Aviles and colleagues, with an educational jaison from [employer]. RAMY-7 Assessment Billing RAMY-7 Assessment Tool: RAMY-7 Assessment 24049 Review of Systems Const Details: - Extremities: Reports persistent leg swelling and states her feet sometimes get very warm. - Cardiovascular: Denies symptoms of congestive heart failure based on recent negative testing. All systems reviewed & are unremarkable except as noted in HPI and below Physical exam (Primary Care) Vital Signs: Last Vital Signs Temp 97.8 F 05/27/25 13:03 Pulse 77 05/27/25 13:03 Resp 14 05/27/25 13:03 BP 134/60 05/27/25 13:03 Pulse Ox 98 05/27/25 13:03 Oxygen Delivery Method Room Air 05/27/25 13:03 Care Plan Goal for BP management: <140/90 at Goal BMI result Body Mass Index 22.1 Normal BMI Tobacco/Smoking Status: Tobacco use Status Tobacco use date assessed 05/09/25 05/27/25 13:09 Patient Tobacco Use Status Never used Tobacco 05/27/25 13:09 PHQ-9: PHQ-9 Score PHQ-9: Total score 0 05/27/25 13:09 Depression Screening Interpretation: Negative Thrive Assessment: Date of Thrive Assessment Date Thrive assessed 05/09/25 05/27/25 13:09 Const Other: Appearance: Alert. Oriented X3. No acute distress. Head: Normal external exam. Normocephalic. Atraumatic. Eyes: Pupils are equal, round, and reactive to light. Extraocular movements intact. Conjunctiva and sclera normal. Eyelids normal. Throat: Pharynx normal. Uvula midline. Moist mucous membranes. Neck: Normal inspection. Neck supple. Full range of motion. Cardiovascular: Normal heart rate and rhythm. Respiratory: No respiratory distress. Painless inspiration. Back: Full range of motion noted. Skin: Skin warm and dry. Normal skin color. Extremities: No lower extremity edema. Extremities exhibit normal range of motion. Results Reviewed Results Reviewed: - Labs - Total cholesterol: 225 mg/dL - LDL cholesterol: 147 mg/dL - Hemoglobin A1c: 5.3 - Imaging - Ultrasound of the leg: Negative for blood clots. - Chest x-ray: No evidence of congestive heart failure. Coding Level of Care Code Est Pt Level 4 (70897) Complex EM visit Add On G2211 Diagnoses Peripheral edema R60.0 Hypertension I10 Hyperlipidemia E78.5 Mild hypercholesterolemia E78.00 Healthcare maintenance Z00.00 Additional Codes RAMY-7 Assessment Billing - RAMY-7 Assessment Tool: RAMY-7 Assessment 93846 ([id number]) PHQ-9 - 61908 - PHQ-9 Billing: Yes ([id number]) Assessment & Plan Assessment & Plan (1) Peripheral edema: Code(s): R60.0 - Localized edema Category: Medical Plan: The patient's persistent leg swelling is likely a side effect from amlodipine, as recent testing, including a leg ultrasound and chest x-ray, has ruled out deep vein thrombosis and congestive heart failure. The patient reports sometimes forgetting her dose and was advised that she could take her amlodipine at bedtime to improve adherence. (2) Hypertension: Code(s): I10 - Essential (primary) hypertension Category: Medical Plan: Patient to continue amlodipine 5 mg daily. Condition is chronic and stable continue to monitor. (3) Hyperlipidemia: Code(s): E78.5 - Hyperlipidemia, unspecified Category: Medical Plan: The patient's total cholesterol was 225 mg/dL and LDL was 147 mg/dL, both of which are elevated. A prescription for a statin at the lowest dose of 10 mg will be sent for the patient to take once at night. (4) Mild hypercholesterolemia: Code(s): E78.00 - Pure hypercholesterolemia, unspecified Category: Medical Plan: The patient's total cholesterol was 225 mg/dL and LDL was 147 mg/dL, both of which are elevated. A prescription for a statin at the lowest dose of 10 mg will be sent for the patient to take once at night. (5) Healthcare maintenance: Code(s): Z00.00 - Encounter for general adult medical examination without abnormal findings Category: Medical Plan: A urinalysis was ordered to screen for blood, protein, and glucose today. The patient will follow up in six months for a physical. The patient has a pending podiatry appointment and was reminded to follow up with her eye doctor. She will be given a medical release form to obtain records from her specialists. Plan Plan Patient was informed and verbally consented to the use of an ambient scribe for clinic note documentation during this visit. 1. Peripheral Edema The patient's persistent leg swelling is likely a side effect from amlodipine, as recent testing, including a leg ultrasound and chest x-ray, has ruled out deep vein thrombosis and congestive heart failure. The patient reports sometimes forgetting her dose and was advised that she could take her amlodipine at bedtime to improve adherence. 2. Hyperlipidemia The patient's total cholesterol was 225 mg/dL and LDL was 147 mg/dL, both of which are elevated. A prescription for a statin at the lowest dose of 10 mg will be sent for the patient to take once at night. 3. Health Maintenance A urinalysis was ordered to screen for blood, protein, and glucose today. The patient will follow up in six months for a physical. The patient has a pending podiatry appointment and was reminded to follow up with her eye doctor. She will be given a medical release form to obtain records from her specialists. I explained to the patient that her recent tests, including a leg ultrasound and chest x-ray, were reassuring and did not show any blood clots or signs of congestive heart failure. We discussed that her persistent leg swelling is likely a side effect of her blood pressure medication, amlodipine. We also reviewed her recent blood work which showed high cholesterol, with a total cholesterol of 225 and an LDL of 147. I recommended starting a low-dose cholesterol medication (10 mg) to be taken at bedtime, and she agreed. I ordered a urinalysis to be done today to check for blood, protein, or glucose. We arranged for a follow-up visit in six months, which will be scheduled as a physical. I provided her with a medical release form to help obtain records from her eye doctor. Orders: Orders UA CC w/rflx Micro + Cult Today Z00.00 - Encounter for general adult medical examination without abnormal findings Medications: New rosuvastatin (Crestor) 10 mg PO BEDTIME 90 tabs 3RF 90 days Patient Instructions: - I am prescribing a new medication for your high cholesterol. Please take one pill at bedtime. I am starting you on the lowest dose available. - Continue taking your blood pressure medication, amlodipine, once a day. If it is easier to remember, you can take it at bedtime. - Before you leave today, please provide a urine sample in the cup I gave you. This is to check for any issues with your kidneys. - You have an appointment with a foot doctor (hospice fellow). Make sure to complete the paperwork they sent you. - Please schedule a follow-up appointment to see me in six months. - We will give you a form to sign so we can request your medical records from your eye doctor. Please fill it out and return it to us.
[2025-05-27 13:03] VITALS: BP 134/60; PULSE 77; RESP 14; TEMP 36.6; O2SAT 98; BMI 22.1
== END 2025-05-27 13:29 | disposition home or self-care (01) ==
LOC: HO.HMCSH 13:01
PROVIDERS: PCP Physician Assistant Medical; Visit Provider Physician Assistant Medical
DX: R60.0 Localized edema (principal); I10 Essential (primary) hypertension; E78.5 Hyperlipidemia, unspecified; E78.00 Pure hypercholesterolemia, unspecified; Z00.00 Encounter for general adult medical examination without abnormal findings

== ENCOUNTER 2025-05-27 13:01 | Outpatient (REF) | payer MEDICARE, SELFPAY ==
[2025-05-27 16:19] LABS: Appearance Urine Clear; Glucose Urine UA Negative (Negative); PH 7.5 (5.0-9.0); Specific Gravity - Urine 1.010 (1.005-1.025); UMIC TRIGGER UACC YES
== END 2025-05-27 13:02 | disposition home or self-care (01) ==
LOC: HO.LAB 13:01
PROVIDERS: PCP Physician Assistant Medical; Visit Provider Physician Assistant Medical
DX: Z00.00 Encounter for general adult medical examination without abnormal findings (principal); H40.9 Unspecified glaucoma; R60.0 Localized edema; I10 Essential (primary) hypertension; E78.00 Pure hypercholesterolemia, unspecified
CPT/HCPCS: 81001; 96127; 99212